=== PATIENT | male | born 1965 | race Caucasian/White ===

== ENCOUNTER 2020-11-03 11:12 | Emergency (ER) | payer BC ==
[~2020-11-03] VITALS: Ht 190.5 cm; Wt 109.1 kg
[~2020-11-03 11:12] MED LIST: DICY10CA88 PO; NO HOME MEDS; ONDA4TAB12 PO
[2020-11-03] MEDS ORDERED: LIDOcaine 1% W/epiNEPHrine 1:200,000 10ml vial IJ ONE (11:55)
[2020-11-03] MEDS ORDERED: TETanus/Pertussis (Acell)/Diphther VAC/PF (Tdap-Adult) 0.5ml syringe IMVAC ONE (11:55)
--- NOTE | 2020-11-03 12:02 | NUR ---
Pt taken straight back to room 16
[2020-11-03] MEDS: normal saline 1000ml 1,000 ML IV ONE ×2 (12:22→12:29)
[2020-11-03] MEDS ORDERED: ceFAZolin 1000mg inj IV ONE (12:25)
[2020-11-03] MEDS ORDERED: gentamicin in saline, iso-osm 80 MG/50 ML premix IV ONE (12:25)
[2020-11-03] MEDS ORDERED: cefazolin/dext.iso 2gm/100ml 100 ML IV ONE (12:25)
[2020-11-03] MEDS ORDERED: HYDR-3964 PO (12:42)
[2020-11-03] MEDS ORDERED: ONDA4TAB6 PO (12:42)
[2020-11-03] MEDS ORDERED: CEPH-585 PO (12:42)
--- NOTE | 2020-11-03 13:14 | NUR ---
checked the compatabilty of cefazolin and gentamycin on clinical pharmacology and they are compatable.
[2020-11-03] MEDS ORDERED: gentamicin inj 80 MG in normal saline 100ml IV soln 98 ML IV ONE (13:15)
[2020-11-03 13:52] VITALS: BP 123/83
== END 2020-11-03 15:00 | disposition home or self-care (01) ==
LOC: ER 11:12
DX: S61.312A Laceration without foreign body of right middle finger with damage to nail, initial encounter (principal); Z88.5 Allergy status to narcotic agent; Z20.3 Contact with and (suspected) exposure to rabies; Z79.2 Long term (current) use of antibiotics; Z79.899 Other long term (current) drug therapy; X58.XXXA Exposure to other specified factors, initial encounter; Y93.89 Activity, other specified; Y92.89 Other specified places as the place of occurrence of the external cause; Y99.8 Other external cause status
CPT/HCPCS: 12002; 73140; 90471; 90715; 96365; 96368; 99284; J1580; J7030

== ENCOUNTER 2021-04-23 17:02 | Inpatient (IN) | payer BC ==
[~2021-04-23] VITALS: Ht 190.5 cm; Wt 90.0 kg
[~2021-04-23 17:02] MED LIST changes: +CEPH-585 PO; +ONDA4TAB6 PO
[2021-04-23 18:01] LABS: ALANINE AMINOTRANSFERASE 275 U/L (12-78); ALBUMIN 3.1 G/DL (3.4-5.0); ALBUMIN/GLOBULIN RATIO 0.7 (1.1-1.5); ALKALINE PHOSPHATASE 120 IU/L (46-116); ANION GAP 12 (8-16); ASPARTATE AMINO TRANSFERASE 186 U/L (10-37); BILIRUBIN,TOTAL 0.9 MG/DL (0.1-1.0); BLOOD UREA NITROGEN 12 MG/DL (7-18); BUN/CREATININE RATIO 13.2 (5.4-32.0); CALCIUM 8.9 MG/DL (8.5-10.1); CHLORIDE 97 MMOL/L (99-107); CREATININE 0.91 MG/DL (0.60-1.10); GLUCOSE 139 MG/DL (70-104); SODIUM 137 MMOL/L (135-145); TOTAL CARBON DIOXIDE 27.9 MMOL/L (24-32); TOTAL PROTEIN 7.6 G/DL (6.4-8.2); eGFR 86 ML/MIN
[2021-04-23 18:05] LABS: LACTATE DEHYDROGENASE 555 U/L (85-227)
[2021-04-23 18:07] LABS: HEMOGLOBIN 14.5 g/dl (14.0-17.9); RED CELL DISTRIBUTION WIDTH 13.3 % (11.5-14.5)
[2021-04-23 18:09] LABS: BASOPHILS % (AUTO) 0.2 % (0-1); EOSINOPHILS # (AUTO) 0.1 X10'3 (0-0.9); EOSINOPHILS % (AUTO) 0.6 % (0-6); HEMATOCRIT 41.2 % (42.0-52.0); LYMPHOCYTES % (AUTO) 11.3 % (21-51); MEAN CORPUSCULAR HEMOGLOBIN 32.1 PG (27.0-31.0); MEAN CORPUSCULAR HGB CONC 35.3 g/dL (33.0-36.5); MEAN CORPUSCULAR VOLUME 90.8 FL (78-98); MEAN PLATELET VOLUME 8.7 FL (7.4-10.4); MONOCYTES # (AUTO) 0.6 X10'3 (0-0.9); MONOCYTES % (AUTO) 6.5 % (2-12); NEUTROPHILS # (AUTO) 6.9 X10'3 (1.8-7.7); NEUTROPHILS % (AUTO) 81.4 % (42-75); PLATELET COUNT 355 X10'3 (140-440); RED BLOOD COUNT 4.54 X10'6 (4.70-6.10); WHITE BLOOD COUNT 8.5 X10'3 (4.5-11.0)
[2021-04-23 18:51] LABS: ANISOCYTOSIS FEW; LARGE PLATELETS MODERATE; PLATELET ESTIMATE NORMAL
[2021-04-23] MEDS ORDERED: potassium Cl 20 mEq SR tablet PO PRN (19:05)
[2021-04-23] MEDS ORDERED: D5-1/2NS w/20 mEq potassium per 1000ml IV ONE (19:05)
[2021-04-23] MEDS ORDERED: potassium CL 20mEq in D5-1/2NS 1,000 ML IV ONE (19:15)
--- NOTE | 2021-04-23 19:57 | NUR ---
placed pt on oxygen 2 liters, nasal cannula, pt is resting quietly in chair in ambulance bay, no resp distress, resp even and unlabored,
[2021-04-23] MEDS ORDERED: ondansetron/PF 4mg/2ml inj IV PRN (20:15)
[2021-04-23] MEDS ORDERED: HYDROcodone/acetaminophen 10/325mg tab PO PRN (20:15)
[2021-04-23] MEDS ORDERED: morphine 2 MG/ML inj. syringe IV PRN ×2 (20:15)
[2021-04-23] MEDS ORDERED: HYDROcodone/acetaminophen 5mg/325mg tablet PO PRN (20:15)
[2021-04-23] MEDS ORDERED: magnesium hydroxide 30ml (MOM) UD suspension PO PRN (20:15)
[2021-04-23] MEDS ORDERED: acetaminophen 325mg tablet PO PRN ×2 (20:15)
[2021-04-23] MEDS ORDERED: mag hydrox/Alum hydrox/simeth 30ml oral suspension PO PRN (20:15)
[2021-04-23 20:53] LABS: D-DIMER 2.33 MG/L FEU (0-0.50)
--- NOTE | 2021-04-23 20:55 | NUR ---
REPORT TO FRANCO MOORE
--- NOTE | 2021-04-23 20:57 | NUR ---
report received from OSCAR gallardo. pt to be transferred to 4793B. room ready
[2021-04-23] MEDS ORDERED: NO HOME MEDS (21:09)
[2021-04-23 21:19] LABS: PHOSPHORUS 2.6 MG/DL (2.3-4.5)
[2021-04-23 21:23] LABS: FERRITIN 2635 NG/ML (26-388)
[2021-04-23] MEDS ORDERED: REMDESIVIR INJ 200 MG in normal saline 100ml IV soln 100 ML IV ONE (21:30)
[2021-04-23] MEDS: dexamethasone inj 6 MG in dextrose 5%-water 50ml 50 ML IV SCH (21:36)
[2021-04-23 22:00] VITALS: BP 130/96
[2021-04-24 02:00] VITALS: BP 124/89
--- NOTE | 2021-04-24 06:09 | NUR ---
Patient in room [facility] 4023. I have received report from Emelia MOORE and had the opportunity to ask questions and assume patient care.
--- NOTE | 2021-04-24 06:15 | NUR ---
PAGER ID: [phone] MESSAGE: [id number], Royce can I get some lisan? thanks, barbi [phone]
[2021-04-24 06:19] VITALS: BP 143/88
[2021-04-24] MEDS ORDERED: guaiFENesin/DM 10ml UD oral syrup PO PRN (06:20)
--- NOTE | 2021-04-24 06:23 | NUR ---
Problems reprioritized. Patient report given, questions answered & plan of care reviewed with Claudia MOORE.
[2021-04-24] MEDS: dexamethasone inj 6 MG in dextrose 5%-water 50ml 50 ML IV SCH ×2 (07:25→19:32)
[2021-04-24] MEDS: docusate sod 100mg capsule PO SCH ×2 (07:26→19:34)
--- NOTE | 2021-04-24 07:44 | NUR ---
Provided patient with IS and flutter and instructed on importance of position change. Patient states that he has used an insentive spirometer in the past and can not do it, flutter given and encouraged to try that. Also gave cough medicine for persistent non productive cough. Currently lying on left side
[2021-04-24 07:55] LABS: BASOPHILS % (AUTO) 0.1 % (0-1); EOSINOPHILS % (AUTO) 0 % (0-6); HEMATOCRIT 37.8 % (42.0-52.0); HEMOGLOBIN 13.1 g/dl (14.0-17.9); LYMPHOCYTES # (AUTO) 0.5 X10'3 (1.1-4.8); LYMPHOCYTES % (AUTO) 11.8 % (21-51); MEAN CORPUSCULAR HEMOGLOBIN 31.6 PG (27.0-31.0); MEAN CORPUSCULAR HGB CONC 34.7 g/dL (33.0-36.5); MEAN CORPUSCULAR VOLUME 91.1 FL (78-98); MEAN PLATELET VOLUME 8.8 FL (7.4-10.4); MONOCYTES # (AUTO) 0.2 X10'3 (0-0.9); MONOCYTES % (AUTO) 6.3 % (2-12); NEUTROPHILS # (AUTO) 3.1 X10'3 (1.8-7.7); NEUTROPHILS % (AUTO) 81.8 % (42-75); PLATELET COUNT 341 X10'3 (140-440); RED BLOOD COUNT 4.15 X10'6 (4.70-6.10); RED CELL DISTRIBUTION WIDTH 13.2 % (11.5-14.5); WHITE BLOOD COUNT 3.8 X10'3 (4.5-11.0)
[2021-04-24] MEDS ORDERED: enoxaparin 40mg/0.4ml syringe SUBCUT SCH (08:00)
[2021-04-24 08:15] LABS: ALBUMIN 2.4 G/DL (3.4-5.0); ANION GAP 9 (8-16); BLOOD UREA NITROGEN 12 MG/DL (7-18); BUN/CREATININE RATIO 16.7 (5.4-32.0); C-REACTIVE PROTEIN 14.44 MG/DL (0.0-0.5); CALCIUM 8.4 MG/DL (8.5-10.1); CHLORIDE 102 MMOL/L (99-107); CREATININE 0.72 MG/DL (0.60-1.10); GLUCOSE 210 MG/DL (70-104); POTASSIUM 3.9 MMOL/L (3.5-5.1); SODIUM 137 MMOL/L (135-145); TOTAL CARBON DIOXIDE 25.8 MMOL/L (24-32); eGFR > 90 ML/MIN
[2021-04-24 09:06] LABS: D-DIMER 3.59 MG/L FEU (0-0.50)
[2021-04-24 09:20] LABS: LARGE PLATELETS MODERATE; PLATELET ESTIMATE NORMAL
[2021-04-24] MEDS ORDERED: FLU VACC QS2021-22(6MOS UP)/PF 60 MCG/0.5 ML SYRINGE IM ONE (10:00)
[2021-04-24 10:07] VITALS: BP 124/82
--- NOTE | 2021-04-24 14:40 | NUR ---
Patient upset when i told him that he needs 3 more doses of antiviral, states "i can't stay here for 3 more day i will ". Awaiting hospitalist to round on patient as he is only on 3 liters of 02. Sent page to hospitalist awaiting response.
--- NOTE | 2021-04-24 14:40 | NUR ---
PAGER ID: [phone] MESSAGE: [id number], Royce patient is only on 3 liters of oxygen and really wants to go home, don't know when you were planning to round.. if you could come speak with him. He only received 1 dose of remdesivir. Claudia [id number]
--- NOTE | 2021-04-24 14:41 | NUR ---
O2 Sat at rest on room air:_85__% If below 89%: Recovery O2 Sat at rest on _3__LPM:__92_%:___% via (mask/nasal cannula, etc..) No further documentation is necessary. If O2 Sat did not drop below 89% on room air,ambulate patient on room air. O2 Sat while ambulating on room air:___% Recovery O2 Sat while ambulating on ___LPM:___% No further documentation is necessary. If patient does not drop below 89% while ambulating, he/she does not qualify for home O2.
--- NOTE | 2021-04-24 15:04 | NUR ---
Sent page to case management for home oxygen while waiting for hospitalist to come see patient.
--- NOTE | 2021-04-24 15:17 | NUR ---
Patient agreeable to one more day as long as d-dimer comes down tomorrow hospitalist will DC home. Spoke to case management regarding this as well.
[2021-04-24 17:33] VITALS: BP 109/75
--- NOTE | 2021-04-24 18:18 | NUR ---
Problems reprioritized. Patient report given, questions answered & plan of care reviewed with Alicja MOROE.
--- NOTE | 2021-04-24 18:19 | NUR ---
Patient in room [facility]TH[facility] 4023. I have received report from Claudia MOORE and had the opportunity to ask questions and assume patient care.
[2021-04-24] MEDS: enoxaparin 60mg/0.6ml syringe SUBCUT SCH (19:33)
[2021-04-24] MEDS ORDERED: REMDESIVIR INJ 100 MG in normal saline 100ml IV soln 100 ML IV SCH (21:00)
[2021-04-24 22:00] VITALS: BP 137/93
[2021-04-25 02:00] VITALS: BP 125/90
[2021-04-25 06:00] VITALS: BP 129/88
[2021-04-25 06:20] LABS: BASOPHILS # (AUTO) 0.1 X10'3 (0-0.2); BASOPHILS % (AUTO) 1.7 % (0-1); EOSINOPHILS % (AUTO) 0.2 % (0-6); HEMATOCRIT 38.9 % (42.0-52.0); HEMOGLOBIN 13.2 g/dl (14.0-17.9); LYMPHOCYTES # (AUTO) 0.5 X10'3 (1.1-4.8); LYMPHOCYTES % (AUTO) 6.4 % (21-51); MEAN CORPUSCULAR HEMOGLOBIN 31.3 PG (27.0-31.0); MEAN CORPUSCULAR HGB CONC 33.9 g/dL (33.0-36.5); MEAN CORPUSCULAR VOLUME 92.2 FL (78-98); MEAN PLATELET VOLUME 8.9 FL (7.4-10.4); MONOCYTES # (AUTO) 0.5 X10'3 (0-0.9); MONOCYTES % (AUTO) 5.6 % (2-12); NEUTROPHILS % (AUTO) 86.1 % (42-75); PLATELET COUNT 451 X10'3 (140-440); RED BLOOD COUNT 4.22 X10'6 (4.70-6.10); RED CELL DISTRIBUTION WIDTH 13.4 % (11.5-14.5); WHITE BLOOD COUNT 8.2 X10'3 (4.5-11.0)
--- NOTE | 2021-04-25 06:26 | NUR ---
Patient in room [facility]TH[facility] 4023. I have received report from Alicja MOORE and had the opportunity to ask questions and assume patient care.
[2021-04-25 06:36] LABS: D-DIMER 2.46 MG/L FEU (0-0.50)
[2021-04-25 06:47] LABS: ALBUMIN 2.5 G/DL (3.4-5.0); ANION GAP 8 (8-16); BLOOD UREA NITROGEN 14 MG/DL (7-18); BUN/CREATININE RATIO 18.4 (5.4-32.0); C-REACTIVE PROTEIN 8.04 MG/DL (0.0-0.5); CALCIUM 8.4 MG/DL (8.5-10.1); CHLORIDE 104 MMOL/L (99-107); CREATININE 0.76 MG/DL (0.60-1.10); GLUCOSE 195 MG/DL (70-104); SODIUM 139 MMOL/L (135-145); TOTAL CARBON DIOXIDE 26.9 MMOL/L (24-32); eGFR > 90 ML/MIN
[2021-04-25] MEDS: docusate sod 100mg capsule PO SCH (08:00)
[2021-04-25] MEDS: dexamethasone inj 6 MG in dextrose 5%-water 50ml 50 ML IV SCH (08:00)
[2021-04-25] MEDS: enoxaparin 60mg/0.6ml syringe SUBCUT SCH (08:01)
[2021-04-25 09:43] VITALS: BP 113/80
[2021-04-25] MEDS ORDERED: RIVA10TA PO (11:55)
[2021-04-25] MEDS ORDERED: DEXA4TAB67 PO (11:55)
--- NOTE | 2021-04-25 13:55 | NUR ---
Explained all discharge and medication instructions to pt. Also instructed pt on home O2 use. Pt verbalized understanding. D/c'd piv, tip intact. Pt escorted to private vehicle by Chris MOORE.
[2021-04-26] MEDS ORDERED: dexamethasone inj 6 MG in normal saline 50ml IV soln 50 ML IV SCH (08:00)
== END 2021-04-25 13:50 | disposition home or self-care (01) | DRG 177 ==
LOC: ER 17:03 → ED HOLD 20:17 → ORTHO 4S 21:00
PROVIDERS: ADMIT Internal Medicine; ATTEND Family Medicine
DX: U07.1 COVID-19 (principal); J12.82 Pneumonia due to coronavirus disease 2019; J96.01 Acute respiratory failure with hypoxia; E87.6 Hypokalemia; R74.01 Elevation of levels of liver transaminase levels; R79.89 Other specified abnormal findings of blood chemistry; Z87.891 Personal history of nicotine dependence; Z23 Encounter for immunization; Z88.5 Allergy status to narcotic agent
CPT/HCPCS: 36415; 71045; 80048; 80053; 82728; 83615; 83880; 84100; 84145; 84484; 85008; 85025; 85379; 86140; 87081; 87635; 93005; 94760; 99285; C9803; G0378; J1100; J1650; J3480; J3490; J7060